=== PATIENT | female | born 1960 | race Caucasian/White ===

== ENCOUNTER 2018-05-18 08:57 | Emergency (ER) | payer OTHER ==
[2018-05-18] MEDS: TETRACAINE 0.5% OPHTH SOLN 4ML OD (09:38)
[2018-05-18] MEDS: FLUORESCEIN OPHTH 1 MG STRIP OD (09:38)
== END 2018-05-18 10:22 | disposition home or self-care (01) ==
LOC: M ED 08:57
DX: S05.01XA Injury of conjunctiva and corneal abrasion without foreign body, right eye, initial encounter (principal); W22.8XXA Striking against or struck by other objects, initial encounter; Y92.018 Other place in single-family (private) house as the place of occurrence of the external cause
CPT/HCPCS: 99283